=== PATIENT | female | born 1940 | race Caucasian/White ===

== ENCOUNTER → 2017-01-24 | Outpatient (CLI) | payer MEDICARE, OTHER ==
[2016-09-22 16:22] VITALS: BP 150/65
[~2017-01-24] MED LIST: AMIT25TA PO; ASCO-78 PO; ATEN-56 PO; CARB1TAB5 PO; DULO60CA6 PO; IOHEXOL 180 MG/ML 10 ML VIAL. ONE; IRON 65 MG; K DUR PO; LEVO50TA5 PO; LOSA100T2 PO; MV-M1TAB36 PO; POTA10TA5 PO; PRAM0.255 PO; PREG75CA PO; methylPREDNISolone ACETATE 40 MG/ML VIAL. ONE; methylPREDNISolone ACETATE 80 MG/ML VIAL. ONE
--- NOTE | 2017-01-25 10:52 | PAIN ---
DATE OF SERVICE: 01/24/2017 PROGRESS NOTE DIAGNOSES: Lumbar radiculopathy with lumbar degenerative disk disease and post-lumbar laminectomy syndrome. HISTORY OF PRESENT ILLNESS: This is a 76-year-old female, who returns for followup status post caudal epidural steroid injections, last seen in 06/2016. The patient doing very well, but reports the pain is returning now for about the last 2 months, increase in her low back, right lower extremity with radiation into the posterior gluteus, posterior thigh and to the anterior thigh as well on the right side into the right lower leg and foot, but occasionally on the left side as well, but only in the posterior aspect of the thigh on the left side. The patient reports it wakes up at night and has been getting worse as the day has been going on. She rates her pain as a 4-5 on a scale 10. She still has no new motor or sensory deficits. No bowel or bladder incontinence, but significant pain in the low back and right lower extremity aching and dull, shooting radiating pain, has been awakens her from sleep occasionally over the past month or so. The patient returns for followup today. PAST MEDICAL HISTORY: ____ significant findings of hypertension, sleep apnea, gastroesophageal reflux and recently diagnosed depression. PREVIOUS SURGERY: Include cholecystectomy, hysterectomy, right mastectomy, lumbar surgery and knee replacement. FAMILY HISTORY: Significant for both parents though with hypertension in the family. SOCIAL HISTORY: The patient does not smoke, does not drink alcohol. Lives locally and is currently retired. CURRENT MEDICATIONS: The patient's medication list updated and includes Nexium, vitamin C, Mirapex, Ocuvite, Tenormin, Cymbalta, Lyrica, Sinemet, levothyroxine, amitriptyline and Cozaar. ALLERGIES: THE PATIENT IS ALLERGIC TO PENICILLIN AND TIZANIDINE. REVIEW OF SYSTEMS: The patient's review of systems is positive for those items mentioned in the history of present illness. All systems reviewed and otherwise negative. It is complete, full and well documented on the patient's chart. PHYSICAL EXAMINATION: VITAL SIGNS: Blood pressure 144/82, pulse 65, respirations 18, temperature 98.6 degree Fahrenheit, weight is 264 pounds. GENERAL: The patient is awake, alert, oriented, appropriate, very pleasant demeanor. HEENT: Head shows normocephalic, atraumatic. Extraocular movements are intact, symmetrical. Oral cavity, mucous membranes are moist and pink. Dentition is intact. NECK: Shows anterior throat supple without palpable lymphadenopathy noted. Swallow reflex is symmetrical. Neck shows full rotational motion of the cervical spine without difficulty or tenderness. CHEST: Shows normal on inspection. Breath sounds are clear to auscultation bilaterally. HEART: Shows S1 and S2 clear. No murmurs are auscultated. ABDOMEN: Soft, nontender, nondistended. No palpable organomegaly. No rebound or guarding demonstrated. BACK: The patient's back shows spine grossly midline. Slight exaggeration of thoracic kyphosis, mild flattening of lumbar lordotic curvature, previously well-healed surgical scars noted in the lumbar distribution. Lumbar paraspinous muscle shows some [id number] tenderness with palpation, but only diffusely in the middle and lower distribution of paraspinous musculature. No radiation of pain, no asymmetry, no atrophy, hypertrophy, no trigger points are demonstrated. The patient has no tenderness over the sacrum or sacroiliac regions. The patient shows good rotational motion of lumbar spine, both laterally as well as extension and flexion without significant difficulty or tenderness. EXTREMITIES: Lower extremities showed deep tendon reflexes at 1+ in the patellar and tendo calcaneus tendons. Motor exam is approximately 4 on a scale of 5 the right dorsiflexion, extension, quadriceps and hamstring flexion 5/5 on the left. Peripheral pulses are 1+ posterior tibial and dorsalis pedis pulses. No peripheral edema is noted. No clubbing, no cyanosis. Lower extremities are warm and dry to touch, equal in color and appearance. Options were discussed with the patient. At this time, the patient's old chart was reviewed as her current medication regimen updated. Current review of systems updated today as well. We will proceed with a caudal approach epidural steroid injection, the first in this series. Risks were again discussed including, but not limited to bleeding, infection, possibility of epidural hematoma, subsequent neurologic compromise, dural punctures, headaches, spinal cord and/or nerve damage, side effects of steroid medication and poor results regarding pain control. The patient understands and wishes to proceed. The patient will return to clinic in approximately 2 weeks for followup. She was counseled as to return appointment, activity level and side effects to be aware of. DIAGNOSES: Lumbar radiculopathy with lumbar degenerative disk disease and post-lumbar laminectomy syndrome. PROCEDURE: Caudal approach epidural steroid injection using C-arm fluoroscopic guidance. Under sterile prep and drape using local anesthetic. Medications injected 120 mg Depo-Medrol plus 10 mL of preservative-free normal saline and 2 mL of Isovue for contrast. CONDITION AT DISCHARGE: Stable. The patient tolerated procedure well, had no complications. TINO CALIX MD DR: ABHAY/nts JOB#: [id number] / [id number]
== END | disposition home or self-care (01) ==
LOC: PNCL 11:14
PROVIDERS: ATTEND Anesthesiology
DX: M51.16 Intervertebral disc disorders with radiculopathy, lumbar region (principal); M96.1 Postlaminectomy syndrome, not elsewhere classified; I10 Essential (primary) hypertension; K21.9 Gastro-esophageal reflux disease without esophagitis; F32.9 Major depressive disorder, single episode, unspecified; D64.9 Anemia, unspecified; E03.9 Hypothyroidism, unspecified; E78.00 Pure hypercholesterolemia, unspecified; Z96.659 Presence of unspecified artificial knee joint; Z90.49 Acquired absence of other specified parts of digestive tract; Z90.710 Acquired absence of both cervix and uterus
CPT/HCPCS: 62323; J1030; J1040

== ENCOUNTER → 2017-02-14 | Outpatient (CLI) | payer MEDICARE, OTHER ==
[2016-09-22 16:22] VITALS: BP 150/65
--- NOTE | 2017-02-14 22:47 | PN ---
DATE: 02/14/2017 DIAGNOSES: Lumbar radiculopathy with lumbar degenerative disk disease and post-lumbar laminectomy syndrome. HISTORY OF PRESENT ILLNESS: The patient is a 76-year-old female who returns for followup status post caudal epidural steroid injection x 1. The patient reports about 60% improvement or slightly more in the low back and the legs. The legs improved significantly, still some pain in the low back, worse in the morning, worse with standing and walking, rates the pain as 4-5 on a scale of 10 at its worst. Reports no new motor or sensory deficits, no new bowel or bladder incontinence or other complaints. There is still some pain waking up her in the morning, when she gets up, around and starts moving, it feels better. With extended standing more than 20-30 minutes does cause some increased pain in the back, again leg are doing much better. The patient is very pleased with her progress thus far. PHYSICAL EXAMINATION: VITAL SIGNS: Today, the patient's blood pressure is 151/78, pulse 74, respirations 18, temperature is 98.3 degrees Fahrenheit, height is 5 feet 6 inches, and weight is 265 pounds. GENERAL: The patient is awake, alert, oriented, appropriate, very pleasant demeanor. HEENT: Head shows normocephalic, atraumatic. Extraocular movements are intact and symmetrical. Oral cavity, mucous membranes are moist and pink. Dentition is intact. NECK: Shows anterior throat supple without palpable lymphadenopathy noted. Swallow reflex is symmetrical. CHEST: Shows normal on inspection. Breath sounds are clear to auscultation bilaterally. HEART: Shows S1, S2 clear. ABDOMEN: Obese, soft, nontender, and nondistended. BACK: Shows spine grossly in midline with some flattening of lumbar lordotic curvature noted with previously well-healed surgical scarring, lumbar paraspinous muscle shows symmetrical in appearance with palpation, is mildly tender with palpation bilaterally in the lumbar distribution diffusely without radiation. The patient shows good rotational motion both laterally as well as extension and flexion without exacerbation of pain. Lower extremities showed deep tendon reflexes at 1+ in the patellar and tendocalcaneus tendons are equal. Motor exam is strong with dorsiflexion, extension, quadriceps and hamstring flexion at 4/5 on the right and 5/5 on the left. Options were discussed with the patient and the patient's old chart was reviewed as her current medication regimen and updated. Current review of systems updated today as well. We will proceed with a caudal approach epidural steroid injection today with fluoroscopic guidance with second in this series. Risks were again discussed including, but not limited to bleeding, infection, possibility of epidural hematoma, subsequent neurologic compromise, dural puncture, headaches, spinal cord and/or nerve damage, side effects of steroid medication and poor results regarding pain control. The patient understands and wishes to proceed. The patient will return to clinic in approximately 2 weeks for followup, was counseled on return appointment, activity level and side effects to be aware of. DIAGNOSIS: Lumbar radiculopathy with lumbar degenerative disk disease and post-lumbar laminectomy syndrome. PROCEDURE: Caudal approach epidural steroid injection using fluoroscopic guidance under sterile prep and drape using local anesthetic. MEDICATIONS INJECTED: Depo-Medrol 120 mg plus 10 mL of preservative free normal saline and 2 mL of Isovue for contrast. CONDITION ON DISCHARGE: Stable. The patient tolerated the procedure well, had no complications. TINO CALIX MD DR: ABHAY/archana JOB#: [id number] / [id number]
== END ==
LOC: PNCL 10:18
PROVIDERS: ATTEND Anesthesiology
DX: M51.16 Intervertebral disc disorders with radiculopathy, lumbar region (principal); M96.1 Postlaminectomy syndrome, not elsewhere classified
CPT/HCPCS: 62323; J1030; J1040

== ENCOUNTER → 2017-03-06 | Outpatient (CLI) | payer MEDICARE, OTHER ==
[2016-09-22 16:22] VITALS: BP 150/65
--- NOTE | 2017-03-06 23:43 | PAIN ---
DATE OF SERVICE: 03/06/2017 PROGRESS NOTE FOR PAIN CLINIC DIAGNOSES: Lumbar radiculopathy with lumbar degenerative disk disease and post-lumbar laminectomy syndrome. HISTORY OF PRESENT ILLNESS: The patient is a 76-year-old female who returns for followup status post caudal approach epidural steroid injection times 2. The patient reports about 60% improvement overall, but first injection was much better and responding than the second one. The patient reports no new motor or sensory deficits, no new bowel or bladder incontinence, but still significant pain in the low back radiating occasionally into the lower extremities. The patient reports some urinary frequency, otherwise negative on review of systems today. The patient reports still significant pain from a 4 to 7 on a scale of 10, worse with activity, standing, walking, better with sitting or lying down. The patient describes the pain is aching, dull and radiating in the low back and bilateral lower extremities. PHYSICAL EXAMINATION: VITAL SIGNS: The patient's blood pressure is 156/81, pulse 68, respirations are 18, temperature is 98.1 degrees Fahrenheit. Height is 5 feet 6 inches, weighs 268 pounds. GENERAL: The patient is awake, alert, oriented, appropriate, very pleasant demeanor. HEENT: Shows normocephalic, atraumatic. Extraocular movements are intact and symmetrical. Oral cavity shows mucous membranes moist and pink. Dentition is intact. NECK: Shows anterior throat supple without palpable lymphadenopathy noted. Swallow reflex is symmetrical. CHEST: Shows normal on inspection. Breath sounds clear to auscultation bilaterally. HEART: Shows S1 and S2 clear. No murmurs auscultated. ABDOMEN: Obese, soft, nontender, nondistended. No palpable organomegaly is noted. BACK: Shows spine grossly in midline with slight exaggeration of thoracic kyphosis and flattening of lumbar lordotic curvature, a well-healed surgical scar noted in the midline lumbar distribution. Lumbar paraspinous musculature diffusely tender and firm throughout the middle and lower distribution of paraspinous muscles, but is symmetrical without evidence of atrophy or hypertrophy. The patient shows good rotational motion both laterally as well as extension and flexion without pain reported. EXTREMITIES: Lower extremities showed deep tendon reflexes 1+ in the patellar and tendo calcaneus tendons. Motor exam is approximately 4 on a scale of 5 with right dorsiflexion and extension, 5/5 on the left. Peripheral pulses are 1+ posterior tibial and dorsalis pedis pulses. No peripheral edema is noted. Options were discussed with the patient. At this time, the patient's old chart was reviewed as her current medication regimen updated. Current review of systems updated today as well. We will proceed with a third caudal approach epidural steroid injection in the series with fluoroscopic guidance. Risks were again discussed including, but not limited to bleeding, infection, possibility of epidural hematoma, subsequent neurologic compromise, dural puncture, headaches, spinal cord and/or nerve damage, side effects of steroid medication and poor results regarding pain control. The patient understands and wishes to proceed. The patient will return to clinic in approximately 2 weeks for followup, was counseled on return appointment, activity level and side effects to be aware of. Also discussed if the patient is not significantly improved, would recommend at this time water therapy through physical therapy and pool coordination, also if not significantly improved after this may consider repeating lumbar MRI scan to differentiate if any of the lumbar disk pathology has progressed. DIAGNOSES: Lumbar radiculopathy with lumbar degenerative disk disease and post-lumbar laminectomy syndrome. PROCEDURE: Caudal approach epidural steroid injection using C-arm fluoroscopic guidance under sterile prep and drape using local anesthetic. MEDICATION INJECTED: 120 mg Depo-Medrol plus 10 mL of preservative-free normal saline and 2 mL of Isovue for contrast. CONDITION AT DISCHARGE: Stable. The patient tolerated procedure well, had no complications. TINO CALIX MD DR: ABHAY/archana JOB#: [id number] / [id number] BLU Marshall
== END | disposition home or self-care (01) ==
LOC: PNCL 09:13
PROVIDERS: ATTEND Anesthesiology
DX: M51.16 Intervertebral disc disorders with radiculopathy, lumbar region (principal); M96.1 Postlaminectomy syndrome, not elsewhere classified; E78.00 Pure hypercholesterolemia, unspecified; I10 Essential (primary) hypertension; E03.9 Hypothyroidism, unspecified; F32.9 Major depressive disorder, single episode, unspecified; D64.9 Anemia, unspecified
CPT/HCPCS: 62323; J1030; J1040

== ENCOUNTER → 2017-03-24 | Outpatient (CLI) | payer MEDICARE, OTHER ==
[2016-09-22 16:22] VITALS: BP 150/65
[~2017-03-24] MED LIST changes: -IOHEXOL 180 MG/ML 10 ML VIAL. ONE; -methylPREDNISolone ACETATE 40 MG/ML VIAL. ONE; -methylPREDNISolone ACETATE 80 MG/ML VIAL. ONE
--- NOTE | 2017-03-24 11:41 | KCIC ---
PROCEDURE Lumbar spine MRI without contrast. HISTORY Lower back pain. Right lower extremity radiculopathy. TECHNIQUE Multiplanar and multi sequence magnetic resonance imaging of the lumbar spine was performed without contrast. COMPARISON 06/30/2016 FINDINGS There is metallic artifact due to interspinous decompression devices at L3-L4 and L4-L5. There is grade 1 anterolisthesis of L4 on L5, measuring 7 mm. There is grade 1 anterolisthesis of L5 on S1, measuring 2 mm. There is slight retrolisthesis of L2 on L3 and L3 on L4. There is mild scoliosis. There is a mild chronic superior endplate depression at T11, with small superior endplate Schmorl's node. There is diffuse disc desiccation. There is degenerative endplate remodeling and Schmorl's node formation predominately at L5-S1. The conus terminates at L1. There is slight epidural lipomatosis. No suspicious osseous lesion is seen. At L1-L2, there is a left posterior lateral predominant disc bulge and endplate remodeling. There is mild left facet arthropathy. There is mild left foraminal stenosis. At L2-L3, there is a diffuse disc bulge and endplate remodeling. There is mild bilateral facet arthropathy. There is no stenosis. At L3-L4, there is a left foraminal to extra foraminal disc protrusion superimposed on a disc bulge and endplate remodeling. There is mild facet arthropathy. There is mild bilateral foraminal stenosis with abutment of the exiting left L3 nerve root. At L4-L5, there is a disc bulge and endplate remodeling. There is moderate facet arthropathy. There is grade 1 anterolisthesis. There is moderate right foraminal stenosis with effacement of the exiting right L4 nerve root. At L5-S1, there are left greater than right foraminal to extra foraminal disc protrusions with endplate osteophytosis superimposed on a disc bulge. There is mild facet arthropathy. There is mild to moderate bilateral foraminal stenosis with abutment of the exiting L5 nerve roots. IMPRESSION 1. Multilevel degenerative change throughout the lumbar spine, described in detail above. This is similar compared to the prior study, with exception of slight interval increase in moderate right foraminal stenosis and effacement of the exiting right L4 nerve root at L4-L5. 2. Interspinous decompression devices at L3-L4 and L4-L5, stable in appearance. 3. Grade 1 anterolisthesis of L4 on L5, and to a lesser extent, L5 on S1. This is stable in appearance. Electronically signed by: Iva Chong (Mar 24, 2017 11:39:46)
== END | disposition home or self-care (01) ==
LOC: KCIC MRI 08:56
PROVIDERS: ATTEND Family Medicine
DX: M47.896 Other spondylosis, lumbar region (principal); M48.06 Spinal stenosis, lumbar region
CPT/HCPCS: 72148

== ENCOUNTER → 2017-07-24 | Outpatient (CLI) | payer MEDICARE, OTHER ==
[2016-09-22 16:22] VITALS: BP 150/65
[~2017-07-24] MED LIST changes: +GADOBUTROL 7.5 MMOL/7.5 ML VIAL IV ONE
--- NOTE | 2017-07-24 15:55 | KCIC ---
MRI Brain with and without contrast History:Headaches recently getting worse, right-sided frontal pressure Technique: Multiplanar, multi sequential pre and postcontrast MR imaging was performed of the brain. Contrast: 11 cc Gadavist Comparison: September 08, 2014 Findings: There is motion degradation. There is no evidence of recent infarct or cytotoxic edema. The ventricles, sulci, and cisterns are within normal limits in size and configuration. There is no significant midline shift, intraaxial mass effect, or focal abnormal extra-axial fluid collection. There are some scattered foci of T2 and FLAIR hyperintense signal abnormality of the supratentorial white matter bilaterally, somewhat greater in the interval of the bilateral parietal deep white matter greater on the right. There is no significant hemosiderin deposition of the brain parenchyma. There is no nodular parenchymal or leptomeningeal enhancement. There is preservation of the major intracranial flow-voids at the skull base. The cerebellar tonsils are normal in location. There is no significant abnormality of the pineal gland or pituitary gland. There is chronic opacification right sphenoid sinus. The mastoid air cells are aerated. There is preserved marrow signal of the clivus. There has been lens surgery bilaterally. Impression: 1. Scattered T2 and FLAIR hyperintense abnormality of the supratentorial white matter is slightly greater than 2014 exam, nonspecific findings most commonly due to chronic microvascular ischemic disease in a patient of this age. 2. There is chronic opacification right sphenoid sinus. Electronically signed by: Luis Angel Field MD (07/24/2017 3:51 PM) [facility]
== END | disposition home or self-care (01) ==
LOC: KCIC MRI 13:28
PROVIDERS: ATTEND Physician Assistant Medical
DX: R51 Headache (principal)
CPT/HCPCS: 70553; 82565; A9585

== ENCOUNTER → 2017-08-18 | Outpatient (CLI) | payer MEDICARE, OTHER ==
[2016-09-22 16:22] VITALS: BP 150/65
[~2017-08-18] MED LIST changes: -GADOBUTROL 7.5 MMOL/7.5 ML VIAL IV ONE
--- NOTE | 2017-08-18 11:56 | KCIC ---
Examination: CT maxillofacial without contrast HISTORY: History of chronic sinusitis COMPARISON: None TECHNIQUE: Axial CT images of the maxillofacial bones were performed without contrast. Coronal and sagittal reformats are performed Exposure: One or more of the following individualized dose reduction techniques were utilized for this examination: 1. Automated exposure control 2. Adjustment of the mA and/or kV according to patient size 3. Use of iterative reconstruction technique FINDINGS: The visualized orbital globes appear intact. The retro-orbital fat is maintained. The visualized frontal sinuses, maxillary sinuses and ethmoidal sinuses are clear. The left sphenoid sinus is clear. There is near complete opacification of the right sphenoid sinusitis with small appearing right sphenoid sinus likely chronic sinusitis. The nasal septum is in the midline The mastoid air cells are clear. IMPRESSION: 1. Small appearing right sphenoid sinus with near-complete opacification likely chronic sinusitis. Electronically signed by: Epifanio Howell MD (08/18/2017 11:53 AM) [facility]
== END | disposition home or self-care (01) ==
LOC: KCIC CT 09:54
PROVIDERS: ATTEND Otolaryngology
DX: J32.9 Chronic sinusitis, unspecified (principal)
CPT/HCPCS: 70486

== ENCOUNTER → 2018-05-22 | Outpatient (CLI) | payer MEDICARE, OTHER | END | disposition home or self-care (01) | LOC: KCIC CT 10:08 | DX: J32.3 Chronic sphenoidal sinusitis (principal); I10 Essential (primary) hypertension; E78.5 Hyperlipidemia, unspecified; E03.9 Hypothyroidism, unspecified | CPT/HCPCS: 70486 ==

== ENCOUNTER → 2018-06-27 | Outpatient (CLI) | payer MEDICARE, OTHER | END | disposition home or self-care (01) | LOC: KCIC US 14:50 | DX: N93.9 Abnormal uterine and vaginal bleeding, unspecified (principal); M48.061 Spinal stenosis, lumbar region without neurogenic claudication; M41.86 Other forms of scoliosis, lumbar region; M25.78 Osteophyte, vertebrae; M12.88 Other specific arthropathies, not elsewhere classified, other specified site; M51.26 Other intervertebral disc displacement, lumbar region; I10 Essential (primary) hypertension; E78.5 Hyperlipidemia, unspecified | CPT/HCPCS: 72148; 76856 ==

== ENCOUNTER → 2020-01-23 | Outpatient (CLI) | payer MEDICARE, OTHER ==
[2016-09-22 16:22] VITALS: BP 150/65
[~2020-01-23] MED LIST changes: +POTA10TA12 PO; -POTA10TA5 PO
--- NOTE | 2020-01-23 12:41 | CARD ---
MR#: [id number] Date of Study: 01/23/2020 Ordering Physician: BLU YOUNG, Referring Physician: BLU YOUNG, Tech: Karyna Marley APPROVED REPORT EXAM: Two-dimensional and M-mode echocardiogram with Doppler and color Doppler. Other Information Quality : AverageHR: 69bpm Technically limited study due to smoking. INDICATION Murmur RISK FACTORS Hypertension 2D DIMENSIONS RVDd3.4 (2.9-3.5cm)Left Atrium(2D)4.1 (1.6-4.0cm) IVSd1.1 (0.7-1.1cm)Aortic Root(2D)3.2 (2.0-3.7cm) LVDd5.4 (3.9-5.9cm)LVOT Diameter2.2 (1.8-2.4cm) PWd1.1 (0.7-1.1cm)LVDs2.7 (2.5-4.0cm) FS (%) 49.2 %SV111.7 ml LVEF(%)80.1 (>50%) Aortic Valve AoV Peak Jerome.207.5cm/sAoV VTI48.0cm AO Peak GR.17.2mmHgLVOT Peak Jerome.142.3cm/s LVOT VTI 39.87cmAO Mean GR.8mmHg KURTIS (VMAX)1.42fx4LRI (VTI)3.05cm2 Mitral Valve MV E Ienyvate96.5cm/sMV E Peak Gr.122mmHg MV DECEL [id number] A Rukmycvz924.4cm/s MV E Mean Gr.4mmHgMV CQI23av E/A Ratio0.8MVA (PHT)2.23cm2 TDI E/Lateral E'11.0E/Medial E'13.8 Pulmonary Valve PV Peak Rktbachr23.2cm/sPV Peak Grad.2mmHg Tricuspid Valve TR P. Utqsmrqs641tr/sRAP ULXAKHWQ1mkJc TR Peak Gr.43bhZtUKBL33piIi Pulmonary Vein S1 Cqltongt73.7cm/sD2 Rnksrjbw75.7cm/s PVa [id number] LEFT VENTRICLE The left ventricle is normal size. There is mild concentric left ventricular hypertrophy. The left ve ntricular systolic function is normal. The Ejection Fraction is 60-65%. There is normal LV segmental wall motion. Transmitral Doppler flow pattern is Grade II-pseudonormal filling dynamics. RIGHT VENTRICLE The right ventricle is normal size. There is normal right ventricular wall thickness. The right ventr icular systolic function is normal. ATRIA The left atrium is moderately dilated. The right atrium size is normal. The interatrial septum is int act with no evidence for an atrial septal defect or patent foramen ovale as noted on 2-D or Doppler i maging. AORTIC VALVE The aortic valve is normal in structure and function. Doppler and Color Flow revealed no significant aortic regurgitation. There is no significant aortic valvular stenosis. Calculated aortic valve area is 3.05 cm2 with maximum pressure gradient of 18 mmHg and mean pressure gradient of 9 mmHg. MITRAL VALVE The mitral valve is thickened but opens well. There is no evidence of mitral valve prolapse. Mitral v alve has a mean gradient of 4 mmHg. Doppler and Color-flow revealed trace to mild mitral regurgitatio n. TRICUSPID VALVE The tricuspid valve is not well visualized. Doppler and Color Flow revealed mild tricuspid regurgitat ion with an estimated PAP of 47 mmHg. There is no tricuspid valve stenosis. PULMONIC VALVE The pulmonic valve is not well visualized. Doppler and Color Flow revealed trace pulmonic valvular re gurgitation. GREAT VESSELS The aortic root is normal in size. The IVC is normal in size and collapses >50% with inspiration. PERICARDIAL EFFUSION There is no evidence of significant pericardial effusion. Critical Notification Critical Value: No <Conclusion> The left ventricular systolic function is normal. The Ejection Fraction is 60-65%. There is normal LV segmental wall motion. Transmitral Doppler flow pattern is Grade II-pseudonormal filling dynamics. The left atrium is moderately dilated. Trace to mild mitral regurgitation. Mild tricuspid regurgitation with an estimated PAP of 47 mmHg. There is no evidence of significant pericardial effusion. Signed by : Jorge L Diaz, Electronically Approved : 01/23/2020 12:41:36
== END | disposition home or self-care (01) ==
LOC: ECHO 10:34
PROVIDERS: ATTEND Physician Assistant Medical
DX: I08.1 Rheumatic disorders of both mitral and tricuspid valves (principal); I11.9 Hypertensive heart disease without heart failure; R01.1 Cardiac murmur, unspecified
CPT/HCPCS: 93306

== ENCOUNTER → 2022-02-07 | Outpatient (CLI) | payer MEDICARE, OTHER ==
[2016-09-22 16:22] VITALS: BP 150/65
[~2022-02-07] MED LIST changes: -DULO60CA6 PO; +DULO60CA7 PO; +PREG-9 PO; -PREG75CA PO
--- NOTE | 2022-02-07 15:59 | CARD ---
MR#: [id number] Date of Study: 02/07/2022 Ordering Physician: GIDEON HASSAN, Referring Physician: GIDEON HASSAN, Tech: Federico Ingram [facility] APPROVED REPORT EXAM: Two-dimensional and M-mode echocardiogram with Doppler and color Doppler. Other Information Quality : FairHR: 73bpm Rhythm : NSR INDICATION Dyspnea RISK FACTORS Hypertension Obesity 2D DIMENSIONS Left Atrium(2D)4.6 (1.6-4.0cm)IVSd1.1 (0.7-1.1cm) Aortic Root(2D)3.2 (2.0-3.7cm)LVDd5.3 (3.9-5.9cm) LVOT Diameter1.9 (1.8-2.4cm)PWd1.1 (0.7-1.1cm) LA Nudywv59 (18-58mL)LVDs3.1 (2.5-4.0cm) FS (%) 40.8 %SV96.1 ml LVEF(%)71.2 (>50%) Aortic Valve AoV Peak Jerome.176.6cm/sAoV VTI39.1cm AO Peak GR.12.5mmHgLVOT Peak Jerome.131.5cm/s LVOT VTI 32.02cmAO Mean GR.7mmHg KURTIS (VMAX)1.60bd3USP (VTI)2.39cm2 Mitral Valve MV E Xuhgeexk83.5cm/sMV DECEL EYAL479ng MV A Ioysditi985.1cm/sMV JVJ01fs E/A Ratio0.7MVA (PHT)2.25cm2 TDI E/Lateral E'11.9E/Medial E'15.3 Pulmonary Valve PV Peak Zfgmcvut444.9cm/sPV Peak Grad.7mmHg Tricuspid Valve TR P. Lrktugfn828sk/sTR Peak Gr.26mmHg Pulmonary Vein S1 Tueurxsm00.6cm/sD2 Vzjndlhy67.4cm/s LEFT VENTRICLE The left ventricle is normal size. There is normal left ventricular wall thickness. The left ventricu lar systolic function is normal. The ejection fraction is 60%. There is normal LV segmental wall omid on. Transmitral Doppler flow pattern is Grade I-abnormal relaxation pattern. No left ventricle thromb us noted on this study. There is no ventricular septal defect visualized. There is no left ventricula r aneurysm. There is no mass noted in the left ventricle. RIGHT VENTRICLE The right ventricle is normal size. There is normal right ventricular wall thickness. The right ventr icular systolic function is normal. ATRIA The left atrium is moderately dilated. The right atrium size is normal. The interatrial septum is int act with no evidence for an atrial septal defect or patent foramen ovale as noted on 2-D or Doppler i maging. AORTIC VALVE The aortic valve is calcified but opens well. Doppler and Color Flow revealed no significant aortic r egurgitation. There is no significant aortic valvular stenosis. There is no aortic valvular vegetatio n. MITRAL VALVE The mitral valve is thickened but opens well. There is no evidence of mitral valve prolapse. There is no mitral valve stenosis. Doppler and Color-flow revealed mild mitral regurgitation. TRICUSPID VALVE The tricuspid valve is normal in structure and function. Doppler and Color Flow revealed trace tricus pid regurgitation. The PA pressure was estimated at 32 mmHg. There is no tricuspid valve prolapse or vegetation. There is no tricuspid valve stenosis. PULMONIC VALVE The pulmonic valve is not well visualized. Doppler and Color Flow revealed no pulmonic valvular regur gitation. There is no pulmonic valvular stenosis. GREAT VESSELS The aortic root is normal in size. The ascending aorta is normal in size. The pulmonary artery is nor mal. The IVC is normal in size and collapses >50% with inspiration. PERICARDIAL EFFUSION There is no pleural effusion. There is no evidence of significant pericardial effusion. Critical Notification Critical Value: No <Conclusion> The left ventricular systolic function is normal. The ejection fraction is 60%. There is normal LV segmental wall motion. Transmitral Doppler flow pattern is Grade I-abnormal relaxation pattern. Mild mitral regurgitation. Trace tricuspid regurgitation. The PA pressure was estimated at 32 mmHg. There is no evidence of significant pericardial effusion. Signed by : Jorge L Diaz, Electronically Approved : 02/07/2022 15:59:04
== END ==
LOC: ECHO 10:50
PROVIDERS: ATTEND Internal Medicine Cardiovascular Disease
DX: I08.0 Rheumatic disorders of both mitral and aortic valves (principal); R06.09 Other forms of dyspnea
CPT/HCPCS: 93306; C8929

== ENCOUNTER → 2022-03-01 | Outpatient (CLI) | payer MEDICARE, OTHER ==
[2016-09-22 16:22] VITALS: BP 150/65
[2022-03-01 15:02] LABS: BASO # 0.2 x10^3/uL (0.0-0.2); BASO % 3 % (0-3); EOS # 0.5 x10^3/uL (0.0-0.7); EOS % 7 % (0-3); HEMATOCRIT 33.2 % (36.0-47.0); HEMOGLOBIN 10.9 g/dL (12.0-15.5); LYMPH # 1.2 x10^3/uL (1.0-4.8); LYMPH % 19 % (24-48); MEAN CORPUSCULAR HEMOGLOBIN 30 pg (25-35); MEAN CORPUSCULAR HGB CONC 33 g/dL (31-37); MEAN CORPUSCULAR VOLUME 92 fL (79-100); MONO # 0.5 x10^3/uL (0.0-1.1); MONO % 9 % (0-9); NEUT # 3.9 x10^3/uL (1.8-7.7); NEUT % 62 % (31-73); PLATELET COUNT 260 x10^3/uL (140-400); RED BLOOD COUNT 3.59 x10^6/uL (3.50-5.40); WHITE BLOOD COUNT 6.3 x10^3/uL (4.0-11.0)
== END ==
LOC: LAB 14:12
PROVIDERS: ATTEND Internal Medicine Pulmonary Disease
DX: R06.00 Dyspnea, unspecified (principal)
CPT/HCPCS: 36415; 83880; 84443; 85025

== ENCOUNTER → 2022-03-14 | Outpatient (CLI) | payer MEDICARE, OTHER ==
[2016-09-22 16:22] VITALS: BP 150/65
--- NOTE | 2022-03-14 10:17 | RAD ---
EXAM: CT CHEST WITHOUT CONTRAST HISTORY: Dyspnea COMPARISON: CT chest 11/03/2017 TECHNIQUE: Helical CT of the chest performed without contrast. Coronal and sagittal reformats were o btained. One or more of the following individualized dose reduction techniques were utilized for this examinat ion: 1. Automated exposure control 2. Adjustment of the mA and/or kV according to patient size 3. Use of iterative reconstruction technique. FINDINGS: Thyroid gland and thoracic inlet: Normal. Heart and great vessels: The heart is normal in size. There is no pericardial effusion. There are cor onary artery calcifications. The thoracic aorta is normal in caliber. Mediastinum and michele: No mediastinal or hilar lymphadenopathy. Lungs and pleura: No evidence of emphysema. No air trapping. No interstitial changes, bronchiectasis, fibrosis, or honeycombing. Multiple small scattered pulmonary nodules measuring up to 4 mm bilateral ly are unchanged from 11/03/2017. Some of these may be calcified granulomas. No pleural effusion. Cent ral airways are clear. 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 There is a 1 cm nodule in the outer left breast (image 21, series 2). Upper abdomen: Surgical changes of cholecystectomy. Bones: No acute osseous abnormality. IMPRESSION: 1. No evidence of interstitial lung disease or emphysema. 2. Multiple small bilateral pulmonary nodules, unchanged from 2017 and requiring no further surveill ance per Fleischner Society guidelines. 3. 1 cm nodule in the outer left breast. This was out of the fvzme-ko-qwxw on the prior CT. Correlate with mammography. Electronically signed by: Jil Steel MD (03/14/2022 10:14 AM) [id number]
== END ==
LOC: CT 08:29
PROVIDERS: ATTEND Internal Medicine Pulmonary Disease
DX: R91.8 Other nonspecific abnormal finding of lung field (principal); I25.10 Atherosclerotic heart disease of native coronary artery without angina pectoris; N63.20 Unspecified lump in the left breast, unspecified quadrant; Z90.49 Acquired absence of other specified parts of digestive tract
CPT/HCPCS: 71250